=== PATIENT | female | born 1990 | race Caucasian/White ===

== ENCOUNTER 2022-12-15 14:48 | Emergency (ER) | payer OTHER ==
[~2022-12-15] VITALS: Ht 165.1 cm; Wt 63.5 kg
[2022-12-15 14:51] VITALS: BP 130/80
[2022-12-15] MEDS ORDERED: LORazepam 1 MG TAB PO ONE (15:05)
--- NOTE | 2022-12-15 15:15 | NUR ---
NA 1511
--- NOTE | 2022-12-15 15:40 | NUR ---
NA 1540
--- NOTE | 2022-12-15 15:59 | NUR ---
NA 1550
--- NOTE | 2022-12-15 16:00 | NUR ---
PATIENT LEFT WITHOUT BEING SEEN BY DR. STONE . NO FURTHER CARE PROVIDED FOR PATIENT.
--- NOTE | 2022-12-15 16:00 | NUR ---
Patient does not wish to proceed with medical care recommended by [facility]. Patient given information related to possible complications, up to and including , which could occur as a result of leaving hospital at this time. Patient verbalizes understanding of risks involved leaving against medical advice.
== END 2022-12-15 16:00 | disposition left against medical advice (07) ==
LOC: MED 14:48
DX: F41.9 Anxiety disorder, unspecified (principal); R07.9 Chest pain, unspecified; R51.9 Headache, unspecified; Z53.21 Procedure and treatment not carried out due to patient leaving prior to being seen by health care provider
CPT/HCPCS: 93005; 99281